=== PATIENT | male | born 1960 | race Two or more races ===

== ENCOUNTER → 2016-04-25 | Outpatient (CLI) | payer OTHER ==
[~2016-04-25] MED LIST: AMLO10TA2 PO; GABA-339 PO; RALT400T PO; RAMI10CA OR; [UNRECOGNIZED DRUG - CODE] PO
[2016-04-25 13:45] LABS: DEFINITIVE VIEW TRANSMISSION; Hematocrit 49.5 % (41.0-53.0); Hemoglobin 15.4 g/dL (13.5-17.5); Mean Corpuscular Hemoglobin 26.8 pg (28.0-32.0); Mean Corpuscular Hgb Conc. 31.2 g/dL (32.0-36.0); Mean Corpuscular Volume 86.1 fL (80.0-100.0); Mean Platelet Volume 9.2 fL (7.4-10.4); Platelet Count (auto) 265 10^3/uL (140-450); Red Cell Distribution Width 14.7 % (11.6-16.0); White Blood Cell 7.9 10^3/uL (4.4-10.8)
[2016-04-25 13:49] LABS: Metamyelocytes % 0; Myelocytes % 0; Promyelocytes % 0; Reactive Lymphocytes 0
[2016-04-25 15:20] LABS: Hypochromia Slight; Ovalocytes FEW; Platelet Estimate Adequate; Stomatocytes Few
== END | disposition home or self-care (01) ==
LOC: LAB 12:31
PROVIDERS: ATTEND Internal Medicine
DX: B20 Human immunodeficiency virus [HIV] disease (principal); I10 Essential (primary) hypertension
CPT/HCPCS: 36415; 85007; 85027; 85652; 86038; 86141; 86200; 86431

== ENCOUNTER 2016-06-25 00:12 | Emergency (ER) | payer OTHER ==
[~2016-06-25] VITALS: Ht 175.3 cm; Wt 99.3 kg
[2016-06-25 00:39] VITALS: BP 167/99
[2016-06-25 01:52] LABS: Hematocrit 42.8 % (41.0-53.0); Hemoglobin 13.8 g/dL (13.5-17.5); Mean Corpuscular Hemoglobin 27.7 pg (28.0-32.0); Mean Corpuscular Hgb Conc. 32.4 g/dL (32.0-36.0); Mean Corpuscular Volume 85.5 fL (80.0-100.0); Mean Platelet Volume 8.7 fL (7.4-10.4); Platelet Count (auto) 257 10^3/uL (140-450); Red Cell Distribution Width 15.4 % (11.6-16.0); White Blood Cell 6.2 10^3/uL (4.4-10.8)
[2016-06-25 01:53] LABS: Albumin 3.8 g/dL (3.4-5.0); Anion Gap 6 (5-15); Aspartate Aminotransferase 20 U/L (15-37); BUN/Creatinine Ratio 15.1; Blood Urea Nitrogen 16 mg/dL (7-18); Calcium 9.3 mg/dL (8.5-10.1); Carbon Dioxide 31 mmol/L (21-32); Chloride 106 mmol/L (98-107); GFR African American 93 mL/min; GFR Non-African American 77 mL/min; Glucose 106 mg/dL (74-106); Metamyelocytes % 0; Myelocytes % 0; Partial Thromboplastin Time 25.5 sec (22.64-33.71); Potassium 3.7 mmol/L (3.5-5.1); Promyelocytes % 0; Prothrombin Time 10.8 sec (9.37-12.3); Reactive Lymphocytes 0; Sodium 143 mmol/L (136-145)
[2016-06-25 01:56] LABS: Alkaline Phosphatase 93 U/L (45-117); Bilirubin, Total 0.3 mg/dL (0.2-1.0); Total Protein 7.5 g/dL (6.4-8.2)
[2016-06-25 02:10] LABS: B-Type Natriuretic Peptide 18.3 pg/mL (0-100); Temperature: 21.4 C (20.0-25.0)
[2016-06-25 03:36] LABS: Platelet Estimate Adequate; RBC Morphology Normal
== END 2016-06-25 03:52 | disposition left against medical advice (07) ==
LOC: ER 00:14
DX: R53.1 Weakness (principal); Z53.21 Procedure and treatment not carried out due to patient leaving prior to being seen by health care provider; R51 Headache
CPT/HCPCS: 36415; 70450; 71010; 80053; 83880; 84484; 85007; 85027; 85610; 85730; 93005

== ENCOUNTER 2016-06-25 16:13 | Emergency (ER) | payer OTHER ==
[~2016-06-25] VITALS: Ht 175.3 cm; Wt 99.3 kg
[2016-06-25] MEDS ORDERED: cloNIDine HCL 0.1 MG TAB PO ONE (17:45)
[2016-06-25 18:00] LABS: Hematocrit 41.8 % (41.0-53.0); Hemoglobin 13.5 g/dL (13.5-17.5); Mean Corpuscular Hemoglobin 27.7 pg (28.0-32.0); Mean Corpuscular Hgb Conc. 32.3 g/dL (32.0-36.0); Mean Corpuscular Volume 85.9 fL (80.0-100.0); Mean Platelet Volume 8.5 fL (7.4-10.4); Platelet Count (auto) 228 10^3/uL (140-450); Red Cell Distribution Width 15.7 % (11.6-16.0); White Blood Cell 5.7 10^3/uL (4.4-10.8)
[2016-06-25 18:13] LABS: Metamyelocytes % 0; Myelocytes % 0; Promyelocytes % 0; Reactive Lymphocytes 0
[2016-06-25 18:16] LABS: Calcium 9.3 mg/dL (8.5-10.1); Potassium 3.9 mmol/L (3.5-5.1)
[2016-06-25 18:28] VITALS: BP 152/96
[2016-06-25 18:52] LABS: Platelet Estimate Adequate
== END 2016-06-25 18:29 | disposition home or self-care (01) ==
LOC: ER 16:20
DX: I10 Essential (primary) hypertension (principal); G62.9 Polyneuropathy, unspecified; K21.9 Gastro-esophageal reflux disease without esophagitis; E78.5 Hyperlipidemia, unspecified; Z90.49 Acquired absence of other specified parts of digestive tract; F17.210 Nicotine dependence, cigarettes, uncomplicated
CPT/HCPCS: 36415; 80048; 85007; 85027; 94761

== ENCOUNTER → 2017-06-08 | Outpatient (CLI) | payer OTHER ==
[~2017-06-08] MED LIST changes: -RAMI10CA OR; +RAMI10CA18 OR
[2017-06-08 10:29] LABS: Hematocrit 41.9 % (41.0-53.0); Hemoglobin 13.6 g/dL (13.5-17.5); Mean Corpuscular Hemoglobin 27.8 pg (28.0-32.0); Mean Corpuscular Hgb Conc. 32.6 g/dL (32.0-36.0); Mean Corpuscular Volume 85.3 fL (80.0-100.0); Platelet Count (auto) 242 10^3/uL (140-450); Red Blood Cells 4.91 10^6/uL (4.5-5.90); White Blood Cell 4.3 10^3/uL (4.4-10.8)
[2017-06-08 10:34] LABS: Band Neutrophils % (manual) 0; Basophils % (manual) 0 (0.0-2.0); Blast Cells 0; Metamyelocytes % 0; Myelocytes % 0; Promyelocytes % 0; Reactive Lymphocytes 0
[2017-06-08 10:49] LABS: Eosinophils % (manual) 2 (0-7); Lymphocytes % (manual) 60 (10.0-50.0); Monocytes % (manual) 13 (0-12)
[2017-06-08 10:52] LABS: BUN/Creatinine Ratio 13.8; Bilirubin, Total 0.4 mg/dL (0.2-1.0); Calcium 8.9 mg/dL (8.5-10.1); Total Protein 7.8 g/dL (6.4-8.2)
== END | disposition home or self-care (01) ==
LOC: LAB 09:24
DX: B20 Human immunodeficiency virus [HIV] disease (principal); B18.2 Chronic viral hepatitis C; G89.4 Chronic pain syndrome; Z68.32 Body mass index [BMI] 32.0-32.9, adult
CPT/HCPCS: 36415; 80053; 85007; 85027; 86360

== ENCOUNTER → 2017-08-02 | Outpatient (CLI) | payer OTHER ==
[2017-08-02 11:39] LABS: Hematocrit 41.2 % (41.0-53.0); Hemoglobin 13.6 g/dL (13.5-17.5); Mean Corpuscular Hgb Conc. 32.9 g/dL (32.0-36.0); Mean Corpuscular Volume 85.1 fL (80.0-100.0); Platelet Count (auto) 202 10^3/uL (140-450); Red Blood Cells 4.84 10^6/uL (4.5-5.90); Red Cell Distribution Width 15.5 % (11.8-14.3); White Blood Cell 4.8 10^3/uL (4.4-10.8)
[2017-08-02 12:02] LABS: Albumin 3.9 g/dL (3.4-5.0); Bilirubin, Total 0.3 mg/dL (0.2-1.0); Calcium 9.4 mg/dL (8.5-10.1); Potassium 4.2 mmol/L (3.5-5.1); Total Protein 7.5 g/dL (6.4-8.2)
[2017-08-02 12:11] LABS: Band Neutrophils % (manual) 0; Basophils % (manual) 0 (0.0-2.0); Blast Cells 0; Metamyelocytes % 0; Myelocytes % 0; Promyelocytes % 0
[2017-08-02 14:18] LABS: Eosinophils % (manual) 2 (0-7); Lymphocytes % (manual) 46 (10.0-50.0); Monocytes % (manual) 6 (0-12); Reactive Lymphocytes 12
== END | disposition home or self-care (01) ==
LOC: LAB 11:18
PROVIDERS: ATTEND Physician Assistant
DX: Z12.5 Encounter for screening for malignant neoplasm of prostate (principal); E78.2 Mixed hyperlipidemia; B20 Human immunodeficiency virus [HIV] disease; B19.20 Unspecified viral hepatitis C without hepatic coma; E31.9 Polyglandular dysfunction, unspecified
CPT/HCPCS: 36415; 80053; 80061; 84153; 84403; 85007; 85027; 87522

== ENCOUNTER 2017-12-16 05:00 | Emergency (ER) | payer OTHER ==
[~2017-12-16] VITALS: Ht 175.3 cm; Wt 94.8 kg
[~2017-12-16 05:00] MED LIST changes: +AMLO10TA12 PO; -AMLO10TA2 PO
[2017-12-16] MEDS ORDERED: SODIUM CHLORIDE 0.9% 1,000 ML IV ONE (07:18)
[2017-12-16] MEDS ORDERED: KETOROLAC TROMETH 30 MG/ML 1ML VIAL IV ONE (07:30)
[2017-12-16] MEDS ORDERED: METOCLOPRAMIDE HCL 5MG/ml INJ 2ml VIAL IV ONE (07:30)
[2017-12-16 09:01] VITALS: BP 142/82
== END 2017-12-16 09:04 | disposition home or self-care (01) ==
LOC: ER 05:00
DX: S22.42XA Multiple fractures of ribs, left side, initial encounter for closed fracture (principal); I10 Essential (primary) hypertension; E78.5 Hyperlipidemia, unspecified; K21.9 Gastro-esophageal reflux disease without esophagitis; Z90.89 Acquired absence of other organs; W51.XXXA Accidental striking against or bumped into by another person, initial encounter; Y93.71 Activity, boxing; Y99.8 Other external cause status; Y92.89 Other specified places as the place of occurrence of the external cause
CPT/HCPCS: 71250; 93005; 96374; 96375; 99284; J1885; J2765; J7030; 96361

== ENCOUNTER → 2018-09-26 | Outpatient (CLI) | payer OTHER | END | disposition home or self-care (01) | LOC: LAB 12:18 | PROVIDERS: ATTEND Obstetrics & Gynecology | DX: B20 Human immunodeficiency virus [HIV] disease (principal) | CPT/HCPCS: 87536 ==

== ENCOUNTER 2019-08-30 06:49 | Emergency (ER) | payer OTHER ==
[~2019-08-30] VITALS: Ht 177.8 cm; Wt 93.9 kg
[~2019-08-30 06:49] MED LIST changes: -AMLO10TA12 PO; +AMLO10TA13 PO; -RAMI10CA18 OR; +RAMI10CA28 OR
[2019-08-30] MEDS ORDERED: SODIUM CHLORIDE 0.9% 1,000 ML IV ONE ×2 (06:56)
[2019-08-30] MEDS ORDERED: MORPHINE SULFATE 4 MG/ML SYR/VIAL IV ONE (07:00)
[2019-08-30] MEDS ORDERED: PROCHLORPERAZINE EDISYLATE 5 MG/ML 2ML VIAL IV ONE (07:00)
[2019-08-30] MEDS ORDERED: LABETALOL HCL 5 MG/ML 4ML SYRINGE IV ONE (07:15)
[2019-08-30 08:53] LABS: Basophils # (auto) 0 10 ^3/uL (0-0.2); Basophils % (auto) 0.8 % (0.0-2.0); Eosinophils # (auto) 0 10 ^3/uL (0-0.8); Eosinophils % (auto) 0.2 % (0.0-7.0); Hematocrit 42.8 % (41.0-53.0); Lymphocytes # (auto) 1.3 10 ^3/uL (0.4-5.4); Lymphocytes % (auto) 25.8 % (10.0-50.0); Mean Corpuscular Hemoglobin 27.5 pg (28.0-32.0); Mean Corpuscular Hgb Conc. 32.6 g/dL (32.0-36.0); Mean Corpuscular Volume 84.4 fL (80.0-100.0); Monocytes # (auto) 0.4 10 ^3/uL (0-1.3); Monocytes % (auto) 7.9 % (0.0-12.0); Neutrophils # (auto) 3.3 10 ^3/uL (1.6-8.6); Neutrophils % (auto) 65.3 % (37.0-80.0); Nucleated Red Blood Cells % 0.2 %; Platelet Count (auto) 182 10^3/uL (140-450); Red Blood Cells 5.08 10^6/uL (4.5-5.90); Red Cell Distribution Width 14.1 % (11.8-14.3)
[2019-08-30 09:01] LABS: Alanine Aminotransferase 55 U/L (16-61); Albumin 3.9 g/dL (3.4-5.0); Anion Gap 10 (5-15); Aspartate Aminotransferase 186 U/L (15-37); BUN/Creatinine Ratio 9.8; Blood Urea Nitrogen 9 mg/dL (7-18); Calcium 8.7 mg/dL (8.5-10.1); Carbon Dioxide 23 mmol/L (21-32); Chloride 110 mmol/L (98-107); GFR African American 108 mL/min; GFR Non-African American 89 mL/min; Glucose 109 mg/dL (74-106); Potassium 3.3 mmol/L (3.5-5.1); Sodium 143 mmol/L (136-145)
[2019-08-30 09:04] LABS: Amylase 42 U/L (25-115); Lipase 77 U/L (73-393)
[2019-08-30 09:05] LABS: Alkaline Phosphatase 87 U/L (45-117); Bilirubin, Total 0.5 mg/dL (0.2-1.0); Total Protein 7.8 g/dL (6.4-8.2)
[2019-08-30 09:21] VITALS: BP 181/65
[2019-08-30 09:52] LABS: Urine Bacteria NONE SEEN /hpf (None Seen); Urine Blood Negative /uL (Negative); Urine Hyaline Cast FEW /lpf (0 - 2); Urine Mucus FEW (None Seen); Urine WBC 1 /hpf (0 - 3)
[2019-08-30 10:03] LABS: Amphetamine Screen, Urine NEGATIVE (NEGATIVE); Barbiturate Scree,Urine NEGATIVE (NEGATIVE); Benzodiazephine Screen, Urine NEGATIVE (NEGATIVE); Cannabinoid Screen, Urine POSITIVE (NEGATIVE); Cocaine Screen, Urine NEGATIVE (NEGATIVE); Phencyclidine Screen, Urine NEGATIVE (NEGATIVE)
[2019-08-30 10:16] LABS: Opiate Scree,Urine POSITIVE (NEGATIVE)
[2019-08-30 10:18] LABS: Alcohol, Urine < 3.0 mg/dL (0-10)
== END 2019-08-30 10:39 | disposition left against medical advice (07) ==
LOC: EDBD 06:49 → ER 06:49
DX: R07.89 Other chest pain (principal); R11.2 Nausea with vomiting, unspecified; E86.0 Dehydration; R00.1 Bradycardia, unspecified; K21.9 Gastro-esophageal reflux disease without esophagitis; E78.5 Hyperlipidemia, unspecified; I10 Essential (primary) hypertension; Z79.899 Other long term (current) drug therapy
CPT/HCPCS: 36415; 71045; 74176; 80053; 80307; 81001; 82150; 83690; 84484; 85025; 93005; 96361; 96374; 96375; 99285; J0780; J2270; J7030

== ENCOUNTER → 2019-10-09 | Outpatient (CLI) | payer OTHER ==
[2019-10-09 11:35] LABS: Alcohol, Urine < 3.0 mg/dL (0-10); Amphetamine Screen, Urine NEGATIVE (NEGATIVE); Barbiturate Scree,Urine NEGATIVE (NEGATIVE); Benzodiazephine Screen, Urine NEGATIVE (NEGATIVE); Cocaine Screen, Urine NEGATIVE (NEGATIVE); Opiate Scree,Urine NEGATIVE (NEGATIVE)
[2019-10-09 11:42] LABS: Cannabinoid Screen, Urine POSITIVE (NEGATIVE); Phencyclidine Screen, Urine NEGATIVE (NEGATIVE)
== END | disposition home or self-care (01) ==
LOC: LAB 10:31
PROVIDERS: ATTEND Physician Assistant
DX: Z79.891 Long term (current) use of opiate analgesic (principal)
CPT/HCPCS: 80307

== ENCOUNTER 2019-12-30 11:13 | Emergency (ER) | payer OTHER ==
[~2019-12-30] VITALS: Ht 175.3 cm; Wt 88.5 kg
[2019-12-30 12:13] LABS: Urine WBC None Seen /hpf (0 - 3)
[2019-12-30 12:27] LABS: Urine Bacteria NONE SEEN /hpf (None Seen); Urine Blood Negative /uL (Negative); Urine Specific Gravity 1.004 (1.001-1.035)
[2019-12-30 13:31] LABS: Basophils # (auto) 0.1 10 ^3/uL (0-0.2); Basophils % (auto) 0.8 % (0.0-2.0); Eosinophils # (auto) 0.1 10 ^3/uL (0-0.8); Hematocrit 48.6 % (41.0-53.0); Hemoglobin 15.8 g/dL (13.5-17.5); Lymphocytes # (auto) 3.5 10 ^3/uL (0.4-5.4); Lymphocytes % (auto) 53.4 % (10.0-50.0); Mean Corpuscular Hemoglobin 27.6 pg (28.0-32.0); Mean Corpuscular Hgb Conc. 32.5 g/dL (32.0-36.0); Mean Corpuscular Volume 84.8 fL (80.0-100.0); Monocytes # (auto) 0.5 10 ^3/uL (0-1.3); Monocytes % (auto) 8.1 % (0.0-12.0); Neutrophils # (auto) 2.3 10 ^3/uL (1.6-8.6); Neutrophils % (auto) 35.7 % (37.0-80.0); Nucleated Red Blood Cells % 0.2 %; Platelet Count (auto) 190 10^3/uL (140-450); Red Blood Cells 5.73 10^6/uL (4.5-5.90); Red Cell Distribution Width 15.6 % (11.8-14.3); White Blood Cell 6.5 10^3/uL (4.4-10.8)
[2019-12-30 13:46] LABS: INR 0.98 (0.9-1.15); Partial Thromboplastin Time 25.1 sec (23.0-31.2)
[2019-12-30 13:53] LABS: Albumin 4.3 g/dL (3.4-5.0); Calcium 9.3 mg/dL (8.5-10.1); Potassium 4.2 mmol/L (3.5-5.1)
[2019-12-30 14:05] LABS: BUN/Creatinine Ratio 14.4; Bilirubin, Total 0.3 mg/dL (0.2-1.0); Total Protein 8.2 g/dL (6.4-8.2)
[2019-12-30 16:36] VITALS: BP 128/64
== END 2019-12-30 16:38 | disposition home or self-care (01) ==
LOC: ER 11:13
DX: K80.20 Calculus of gallbladder without cholecystitis without obstruction (principal); K21.9 Gastro-esophageal reflux disease without esophagitis; E78.5 Hyperlipidemia, unspecified; I10 Essential (primary) hypertension; Z88.8 Allergy status to other drugs, medicaments and biological substances
CPT/HCPCS: 36415; 76705; 80053; 81001; 82150; 83690; 85025; 85610; 85730

== ENCOUNTER → 2020-01-21 | Outpatient (CLI) | payer OTHER ==
[2020-01-21 10:58] LABS: Hematocrit 43.7 % (41.0-53.0); Hemoglobin 14.7 g/dL (13.5-17.5); Mean Corpuscular Hemoglobin 28.5 pg (28.0-32.0); Mean Corpuscular Hgb Conc. 33.6 g/dL (32.0-36.0); Mean Corpuscular Volume 84.7 fL (80.0-100.0); Platelet Count (auto) 187 10^3/uL (140-450); Red Blood Cells 5.16 10^6/uL (4.5-5.90); Red Cell Distribution Width 15.1 % (11.8-14.3); White Blood Cell 5.7 10^3/uL (4.4-10.8)
[2020-01-21 11:01] LABS: Band Neutrophils % (manual) 0; Basophils % (manual) 0 (0.0-2.0); Blast Cells 0; Metamyelocytes % 0; Myelocytes % 0; Promyelocytes % 0; Reactive Lymphocytes 0
[2020-01-21 11:24] LABS: Eosinophils % (manual) 3 (0-7); Lymphocytes % (manual) 70 (10.0-50.0); Monocytes % (manual) 2 (0-12)
[2020-01-21 11:29] LABS: Albumin 3.9 g/dL (3.4-5.0); Calcium 9.7 mg/dL (8.5-10.1); Potassium 3.9 mmol/L (3.5-5.1)
[2020-01-21 11:35] LABS: BUN/Creatinine Ratio 17.6; Bilirubin, Total 0.3 mg/dL (0.2-1.0); Total Protein 7.6 g/dL (6.4-8.2)
== END | disposition home or self-care (01) ==
LOC: LAB 10:36
PROVIDERS: ATTEND Physician Assistant
DX: E78.2 Mixed hyperlipidemia (principal); I10 Essential (primary) hypertension; E34.9 Endocrine disorder, unspecified; R35.1 Nocturia; B20 Human immunodeficiency virus [HIV] disease
CPT/HCPCS: 36415; 80053; 80061; 84153; 84403; 85007; 85027

== ENCOUNTER 2021-02-28 18:07 | Emergency (ER) | payer OTHER ==
[~2021-02-28] VITALS: Ht 175.3 cm; Wt 88.0 kg
[~2021-02-28 18:07] MED LIST changes: +AMLO-496 PO; -AMLO10TA13 PO
[2021-02-28 18:10] VITALS: BP 139/100
== END 2021-02-28 23:32 | disposition left against medical advice (07) ==
LOC: ER 18:07
DX: S61.412A Laceration without foreign body of left hand, initial encounter (principal); Z53.21 Procedure and treatment not carried out due to patient leaving prior to being seen by health care provider; W26.9XXA Contact with unspecified sharp object(s), initial encounter; Y93.89 Activity, other specified; Y92.89 Other specified places as the place of occurrence of the external cause; Y99.8 Other external cause status

== ENCOUNTER → 2021-04-06 | Outpatient (CLI) | payer OTHER | END | disposition home or self-care (01) | LOC: LAB 12:00 | PROVIDERS: ATTEND Specialist | DX: D31.02 Benign neoplasm of left conjunctiva (principal) | CPT/HCPCS: 88302 ==

== ENCOUNTER 2022-01-25 11:19 | Inpatient (IN) | payer OTHER ==
[~2022-01-25] VITALS: Ht 175.3 cm; Wt 98.8 kg
[2022-01-25 11:36] VITALS: BP 189/100
[2022-01-25 11:57] LABS: Hematocrit 42.8 % (41.0-53.0); Hemoglobin 13.9 g/dL (13.5-17.5); Mean Corpuscular Hemoglobin 28.6 pg (28.0-32.0); Mean Corpuscular Hgb Conc. 32.5 g/dL (32.0-36.0); Mean Corpuscular Volume 88.1 fL (80.0-100.0); Red Blood Cells 4.86 10^6/uL (4.5-5.90); Red Cell Distribution Width 14.6 % (11.8-14.3); White Blood Cell 5.7 10^3/uL (4.4-10.8)
[2022-01-25 12:01] LABS: Band Neutrophils % (manual) 0; Basophils % (manual) 0 (0.0-2.0); Blast Cells 0; Eosinophils % (manual) 0 (0-7); Metamyelocytes % 0; Myelocytes % 0; Promyelocytes % 0
[2022-01-25 12:27] LABS: Lymphocytes % (manual) 66 (10.0-50.0); Monocytes % (manual) 7 (0-12); Reactive Lymphocytes 5
[2022-01-25 12:29] LABS: Albumin 3.9 g/dL (3.4-5.0); BUN/Creatinine Ratio 18.3; Bilirubin, Total 0.5 mg/dL (0.2-1.0); Calcium 8.8 mg/dL (8.5-10.1)
[2022-01-25 14:04] LABS: Urine Bacteria NONE SEEN /hpf (None Seen); Urine Blood Negative /uL (Negative); Urine Hyaline Cast FEW /lpf (0 - 2); Urine Mucus FEW (None Seen); Urine WBC 1 /hpf (0 - 3)
[2022-01-25] MEDS ORDERED: amLODIPine BESYLATE 5 MG TAB PO ONE (14:45)
[2022-01-25] MEDS ORDERED: ASPirin 81 mg TAB PO ONE (15:00)
[2022-01-25] MEDS ORDERED: HYDROcodone-ACET 5/325MG TAB PO PRN (16:00)
[2022-01-25] MEDS ORDERED: MORPHINE SULFATE INJ 2 MG/ml SYRG IV PRN ×2 (16:00)
[2022-01-25] MEDS ORDERED: NITROGLYCERIN 0.4 MG SL TAB SL PRN (16:00)
[2022-01-25] MEDS ORDERED: ACETAMINOPHEN 325 MG TAB PO PRN (16:00)
[2022-01-25] MEDS ORDERED: hydrALAZINE HCL 20 MG/ML VL IV PRN (16:45)
[2022-01-25 17:01] LABS: Cholesterol 156 mg/dL (< 200); HDL Cholesterol 82 mg/dL (40-59); LDL Cholesterol 75 mg/dL (< 100); Triglycerides 104 mg/dL (< 150)
[2022-01-25 19:08] LABS: Amphetamine Screen, Urine NEGATIVE (NEGATIVE); Barbiturate Scree,Urine NEGATIVE (NEGATIVE); Benzodiazephine Screen, Urine NEGATIVE (NEGATIVE); Cannabinoid Screen, Urine POSITIVE (NEGATIVE); Cocaine Screen, Urine NEGATIVE (NEGATIVE); Opiate Scree,Urine NEGATIVE (NEGATIVE); Phencyclidine Screen, Urine NEGATIVE (NEGATIVE)
[2022-01-25] MEDS ORDERED: ATORVASTATIN 20 MG TAB PO SCH (22:00)
[2022-01-25] MEDS ORDERED: ENOXAPARIN SOD 100 MG/1 ML SYRINGE SC SCH (22:00)
[2022-01-25] MEDS ORDERED: GABAPENTIN 300 MG CAP PO SCH (22:00)
[2022-01-26] MEDS ORDERED: ASPirin 81 mg TAB PO SCH (10:00)
[2022-01-26] MEDS ORDERED: NICOTINE 7MG/24HR TOPICAL PATCH TD SCH (10:00)
[2022-01-26] MEDS ORDERED: NITROGLYCERIN 0.4MG/HR TOPICAL PATCH TD SCH (10:00)
[2022-01-26] MEDS ORDERED: amLODIPine BESYLATE 5 MG TAB PO SCH (10:00)
[2022-01-26] MEDS ORDERED: RAMIPRIL 10 MG CAP PO SCH (10:00)
[2022-01-26] MEDS ORDERED: [UNRECOGNIZED DRUG - OTHER] PO SCH (10:00)
== END 2022-01-25 19:17 | disposition left against medical advice (07) | DRG 305 ==
LOC: ER 11:19 → TELE 15:58
PROVIDERS: ADMIT Registered Nurse; ATTEND Registered Nurse
DX: I16.0 Hypertensive urgency (principal); E66.01 Morbid (severe) obesity due to excess calories; E78.5 Hyperlipidemia, unspecified; F17.210 Nicotine dependence, cigarettes, uncomplicated; I10 Essential (primary) hypertension; I44.0 Atrioventricular block, first degree; K21.9 Gastro-esophageal reflux disease without esophagitis; Z82.49 Family history of ischemic heart disease and other diseases of the circulatory system; Z90.49 Acquired absence of other specified parts of digestive tract; Z68.32 Body mass index [BMI] 32.0-32.9, adult
CPT/HCPCS: 36415; 71045; 80053; 80061; 80307; 81001; 83036; 84443; 84484; 85007; 85027; 93005; G0378

== ENCOUNTER 2022-01-27 06:00 | Inpatient (IN) | payer OTHER ==
[~2022-01-27] VITALS: Ht 175.3 cm; Wt 89.0 kg
[2022-01-27] MEDS ORDERED: cloNIDine HCL 0.1 MG TAB PO ONE ×2 (06:30→18:00)
[2022-01-27 06:37] LABS: Basophils # (auto) 0 10 ^3/uL (0-0.2); Basophils % (auto) 0.5 % (0.0-2.0); Eosinophils # (auto) 0 10 ^3/uL (0-0.8); Eosinophils % (auto) 0.8 % (0.0-7.0); Hematocrit 45.6 % (41.0-53.0); Hemoglobin 14.8 g/dL (13.5-17.5); Lymphocytes # (auto) 2.8 10 ^3/uL (0.4-5.4); Lymphocytes % (auto) 49.3 % (10.0-50.0); Mean Corpuscular Hemoglobin 28.4 pg (28.0-32.0); Mean Corpuscular Hgb Conc. 32.4 g/dL (32.0-36.0); Mean Corpuscular Volume 87.5 fL (80.0-100.0); Monocytes # (auto) 0.6 10 ^3/uL (0-1.3); Monocytes % (auto) 11.3 % (0.0-12.0); Neutrophils # (auto) 2.1 10 ^3/uL (1.6-8.6); Neutrophils % (auto) 38.1 % (37.0-80.0); Nucleated Red Blood Cells % 0.4 %; Red Cell Distribution Width 14.4 % (11.8-14.3); White Blood Cell 5.6 10^3/uL (4.4-10.8)
[2022-01-27] MEDS ORDERED: ASPirin 325 MG TAB PO ONE (06:45)
[2022-01-27] MEDS ORDERED: NITROGLYCERIN 0.4 MG SL TAB SL ONE (06:45)
[2022-01-27 07:14] LABS: Albumin 3.9 g/dL (3.4-5.0); Calcium 9.2 mg/dL (8.5-10.1); Potassium 3.6 mmol/L (3.5-5.1)
[2022-01-27 07:17] LABS: Bilirubin, Total 0.5 mg/dL (0.2-1.0); Total Protein 7.2 g/dL (6.4-8.2)
[2022-01-27 07:39] LABS: INR 1.04 (0.9-1.15); Partial Thromboplastin Time 27.1 sec (24.6-33.4)
[2022-01-27] MEDS ORDERED: ALUM & MAG HYDROX-SIMETH LIQ(MAALOX) 30 ML PO ONE (10:45)
[2022-01-27] MEDS ORDERED: MORPHINE SULFATE 4 MG/ML SYR/VIAL IV PRN (10:45)
[2022-01-27] MEDS ORDERED: NITROGLYCERIN 0.4 MG SL TAB SL PRN ×2 (10:45)
[2022-01-27] MEDS ORDERED: ATORVASTATIN 20 MG TAB PO ONE (10:45)
[2022-01-27] MEDS ORDERED: ENOXAPARIN SOD 30 MG/0.3 ML SYRINGE IV ONE (10:45)
[2022-01-27 11:32] LABS: INR 1.04 (0.9-1.15)
[2022-01-27] MEDS ORDERED: RAMIPRIL 10 MG CAP PO ONE (12:00)
[2022-01-27] MEDS: GABAPENTIN 300 MG CAP PO SCH ×2 (12:06→21:37)
[2022-01-27] MEDS ORDERED: amLODIPine BESYLATE 5 MG TAB PO ONE (12:15)
[2022-01-27] MEDS: ONDANSETRON HCL 4 MG/2 ML VIAL IV PRN ×2 (15:23→21:44)
[2022-01-27] MEDS: MORPHINE SULFATE INJ 2 MG/ml SYRG IV PRN ×2 (15:23→19:25)
[2022-01-27] MEDS: hydrALAZINE HCL 20 MG/ML VL IV PRN ×2 (15:23→23:05)
[2022-01-27 17:00] VITALS: BP 177/101
[2022-01-27] MEDS ORDERED: CLON0.2T PO (17:53)
[2022-01-27 18:52] VITALS: BP 162/87
[2022-01-27] MEDS: cloNIDine HCL 0.1 MG TAB PO SCH (21:38)
[2022-01-27] MEDS: ACETAMINOPHEN 325 MG TAB PO PRN (23:04)
[2022-01-27 23:53] VITALS: BP 151/77
[2022-01-28] VITALS (9 sets, daily range): BP systolic 123–158; BP diastolic 63–98
[2022-01-28] MEDS: ONDANSETRON HCL 4 MG/2 ML VIAL IV PRN (01:52)
[2022-01-28] MEDS: MORPHINE SULFATE INJ 2 MG/ml SYRG IV PRN (01:53)
[2022-01-28] MEDS ORDERED: PANTOPRAZOLE 40 MG/10 ML VIAL INJ IV ONE (02:45)
[2022-01-28 05:31] LABS: Basophils # (auto) 0 10 ^3/uL (0-0.2); Basophils % (auto) 0.3 % (0.0-2.0); Eosinophils # (auto) 0 10 ^3/uL (0-0.8); Eosinophils % (auto) 0.1 % (0.0-7.0); Hematocrit 44.6 % (41.0-53.0); Hemoglobin 14.9 g/dL (13.5-17.5); Lymphocytes # (auto) 0.5 10 ^3/uL (0.4-5.4); Lymphocytes % (auto) 11.6 % (10.0-50.0); Mean Corpuscular Hgb Conc. 33.3 g/dL (32.0-36.0); Mean Corpuscular Volume 87.2 fL (80.0-100.0); Monocytes # (auto) 0.5 10 ^3/uL (0-1.3); Monocytes % (auto) 10.5 % (0.0-12.0); Neutrophils # (auto) 3.5 10 ^3/uL (1.6-8.6); Neutrophils % (auto) 77.5 % (37.0-80.0); Nucleated Red Blood Cells % 0.2 %; Red Blood Cells 5.11 10^6/uL (4.5-5.90); Red Cell Distribution Width 14.4 % (11.8-14.3); White Blood Cell 4.6 10^3/uL (4.4-10.8)
[2022-01-28 08:53] LABS: Albumin 3.6 g/dL (3.4-5.0); Calcium 8.9 mg/dL (8.5-10.1); Potassium 4.1 mmol/L (3.5-5.1)
[2022-01-28 08:56] LABS: Bilirubin, Total 0.4 mg/dL (0.2-1.0); Total Protein 6.8 g/dL (6.4-8.2)
[2022-01-28] MEDS: GABAPENTIN 300 MG CAP PO SCH ×2 (09:42→22:12)
[2022-01-28] MEDS: PANTOPRAZOLE 40 MG/10 ML VIAL INJ IV SCH (09:43)
[2022-01-28] MEDS: ASPirin 81 mg TAB PO SCH (09:44)
[2022-01-28] MEDS: amLODIPine BESYLATE 5 MG TAB PO SCH (09:44)
[2022-01-28] MEDS: DOCUSATE SOD 100 MG CAP PO SCH (09:45)
[2022-01-28] MEDS: cloNIDine HCL 0.1 MG TAB PO SCH ×2 (09:45→22:12)
[2022-01-28] MEDS: CLOPIDOGREL BISULFATE 75 MG TAB PO SCH (09:45)
[2022-01-28] MEDS: RAMIPRIL 10 MG CAP PO SCH (09:46)
[2022-01-28] MEDS: [UNRECOGNIZED DRUG - OTHER] PO SCH (10:00)
[2022-01-28] MEDS ORDERED: HEPARIN SODIUM (PORCINE) 5000 UNITS/ML 1ML VIAL ONE (16:24)
[2022-01-28] MEDS ORDERED: VERAPAMIL 2.5MG/ML INJ 2ML VIAL IV ONE (16:24)
[2022-01-28] MEDS ORDERED: fentaNYL CITRATE 100 MCG/2 ML VL ONE (16:24)
[2022-01-28] MEDS ORDERED: MIDAZOLAM HCL 2MG/2ML 2ml VIAL (1mg/ml) ONE (16:25)
[2022-01-28] MEDS ORDERED: LIDOCAINE 2%HCL (LOCAL ANESTH.) INJ 20ML MDV ONE (16:25)
[2022-01-28] MEDS ORDERED: IODIXANOL 320MG/ML 100ML BTL IV ONE ×2 (16:25→16:57)
[2022-01-28] MEDS ORDERED: ANGIOMAX 250 MG VIAL IV ONE (16:47)
[2022-01-28] MEDS ORDERED: SODIUM CHL 0.9% 50 ML ONE (16:47)
[2022-01-28] MEDS ORDERED: CLOPIDOGREL 300 MG TAB ONE (17:02)
[2022-01-29 05:00] VITALS: BP 147/89
[2022-01-29 09:00] VITALS: BP 155/78
[2022-01-29] MEDS: CLOPIDOGREL BISULFATE 75 MG TAB PO SCH (09:11)
[2022-01-29] MEDS: GABAPENTIN 300 MG CAP PO SCH (09:12)
[2022-01-29] MEDS: cloNIDine HCL 0.1 MG TAB PO SCH (09:13)
[2022-01-29] MEDS: amLODIPine BESYLATE 5 MG TAB PO SCH (09:14)
[2022-01-29] MEDS: ASPirin 81 mg TAB PO SCH (09:14)
[2022-01-29] MEDS: ACETAMINOPHEN 325 MG TAB PO PRN (09:14)
[2022-01-29] MEDS: DOCUSATE SOD 100 MG CAP PO SCH (09:15)
[2022-01-29] MEDS: PANTOPRAZOLE 40 MG/10 ML VIAL INJ IV SCH (09:16)
[2022-01-29] MEDS: [UNRECOGNIZED DRUG - OTHER] PO SCH (10:00)
[2022-01-29] MEDS: RAMIPRIL 10 MG CAP PO SCH (10:00)
[2022-01-29 13:00] VITALS: BP 142/80
[2022-01-29] MEDS ORDERED: ATOR20TA50 PO (16:26)
[2022-01-29] MEDS ORDERED: CLOP75TA70 PO (16:26)
[2022-01-29] MEDS ORDERED: METO-6 PO (16:26)
[2022-01-29] MEDS ORDERED: ASPI-325 PO (16:26)
[2022-01-29 17:00] VITALS: BP 160/96
[2022-01-29 17:11] VITALS: BP 155/78
[2022-01-29] MEDS ORDERED: ATORVASTATIN 20 MG TAB PO SCH (22:00)
[2022-01-30] MEDS ORDERED: METOPROLOL SUCCINATE XL 50 MG TAB PO SCH (10:00)
== END 2022-01-29 17:40 | disposition home or self-care (01) | DRG 247 ==
LOC: ER 06:00 → TELE 10:42 → TELE-EAST 17:05
PROVIDERS: ADMIT Nurse Practitioner Family; ATTEND Student in an Organized Health Care Education/Training Program
PROC: 4A023N7 Measurement of Cardiac Sampling and Pressure, Left Heart, Percutaneous Approach (ICD-10-PCS; principal; 2022-01-28)
PROC: 027034Z Dilation of Coronary Artery, One Artery with Drug-eluting Intraluminal Device, Percutaneous Approach (ICD-10-PCS; 2022-01-28)
PROC: B211YZZ Fluoroscopy of Multiple Coronary Arteries using Other Contrast (ICD-10-PCS; 2022-01-28)
PROC: B215YZZ Fluoroscopy of Left Heart using Other Contrast (ICD-10-PCS; 2022-01-28)
PROC: 4A033BC Measurement of Arterial Pressure, Coronary, Percutaneous Approach (ICD-10-PCS; 2022-01-28)
DX: I21.4 Non-ST elevation (NSTEMI) myocardial infarction (principal); I16.1 Hypertensive emergency; I25.110 Atherosclerotic heart disease of native coronary artery with unstable angina pectoris; I24.9 Acute ischemic heart disease, unspecified; F17.210 Nicotine dependence, cigarettes, uncomplicated; I10 Essential (primary) hypertension; Z21 Asymptomatic human immunodeficiency virus [HIV] infection status; Z20.822 Contact with and (suspected) exposure to COVID-19; K21.9 Gastro-esophageal reflux disease without esophagitis; E78.5 Hyperlipidemia, unspecified; Z82.49 Family history of ischemic heart disease and other diseases of the circulatory system; Z79.899 Other long term (current) drug therapy; Z90.49 Acquired absence of other specified parts of digestive tract
CPT/HCPCS: 36415; 71045; 80053; 80061; 83735; 83880; 84484; 85025; 85610; 85730; 87426; 93005; 93306; 96374; 99152; C1874; C9113; G0378; J2250; J2405; Q9967

== ENCOUNTER 2022-04-09 06:13 | Inpatient (IN) | payer OTHER ==
[~2022-04-09] VITALS: Ht 175.3 cm; Wt 93.4 kg
[~2022-04-09 06:13] MED LIST changes: +ASPI-325 PO; +ATOR20TA50 PO; +CLON0.2T PO; +CLOP75TA70 PO; +METO-6 PO
[2022-04-09 06:41] VITALS: BP 189/107
[2022-04-09 07:13] LABS: Basophils # (auto) 0 10 ^3/uL (0-0.2); Basophils % (auto) 0.4 % (0.0-2.0); Eosinophils # (auto) 0.1 10 ^3/uL (0-0.8); Eosinophils % (auto) 1.1 % (0.0-7.0); Hematocrit 44.4 % (41.0-53.0); Hemoglobin 14.5 g/dL (13.5-17.5); Lymphocytes # (auto) 2.3 10 ^3/uL (0.4-5.4); Lymphocytes % (auto) 47.8 % (10.0-50.0); Mean Corpuscular Hemoglobin 29.1 pg (28.0-32.0); Mean Corpuscular Hgb Conc. 32.6 g/dL (32.0-36.0); Mean Corpuscular Volume 89.2 fL (80.0-100.0); Monocytes # (auto) 0.5 10 ^3/uL (0-1.3); Monocytes % (auto) 11.2 % (0.0-12.0); Neutrophils # (auto) 1.9 10 ^3/uL (1.6-8.6); Neutrophils % (auto) 39.5 % (37.0-80.0); Nucleated Red Blood Cells % 0.3 %; Red Blood Cells 4.97 10^6/uL (4.5-5.90); Red Cell Distribution Width 17.1 % (11.8-14.3); White Blood Cell 4.8 10^3/uL (4.4-10.8)
[2022-04-09 07:26] LABS: Albumin 4.1 g/dL (3.4-5.0); Calcium 9.2 mg/dL (8.5-10.1)
[2022-04-09 07:30] LABS: BUN/Creatinine Ratio 13.4; Bilirubin, Total 0.5 mg/dL (0.2-1.0); Total Protein 7.4 g/dL (6.4-8.2)
[2022-04-09] MEDS ORDERED: cloNIDine HCL 0.1 MG TAB PO ONE (08:00)
[2022-04-09 09:43] LABS: INR 0.96 (0.9-1.15); Partial Thromboplastin Time 26.8 sec (24.6-33.4)
[2022-04-09] MEDS ORDERED: NITROGLYCERIN 0.4 MG SL TAB SL PRN (09:45)
[2022-04-09] MEDS ORDERED: HYDROcodone-ACET 5/325MG TAB PO PRN (09:45)
[2022-04-09] MEDS ORDERED: DOCUSATE SOD 100 MG CAP PO PRN (09:45)
[2022-04-09] MEDS ORDERED: SODIUM CHLORIDE 0.9% 1,000 ML IV SCH (09:45)
[2022-04-09] MEDS ORDERED: ACETAMINOPHEN 325 MG TAB PO PRN (09:45)
[2022-04-09] MEDS ORDERED: ONDANSETRON HCL 4 MG/2 ML VIAL IV PRN (09:45)
[2022-04-09] MEDS ORDERED: MORPHINE SULFATE INJ 2 MG/ml SYRG IV PRN (09:45)
[2022-04-09] MEDS ORDERED: PANTOPRAZOLE 40 MG/10 ML VIAL INJ IV SCH (10:00)
[2022-04-09] MEDS ORDERED: ASPirin-EC 81 mg tab PO SCH (10:00)
[2022-04-09] MEDS ORDERED: METOPROLOL SUCCINATE XL 50 MG TAB PO SCH (10:00)
[2022-04-09] MEDS ORDERED: RAMIPRIL 10 MG CAP PO SCH (10:00)
[2022-04-09] MEDS ORDERED: cloNIDine HCL 0.1 MG TAB PO SCH (10:30)
[2022-04-09] MEDS ORDERED: GABAPENTIN 300 MG CAP PO SCH (10:30)
[2022-04-09 11:03] LABS: Urine Bacteria NONE SEEN /hpf (None Seen); Urine Blood Negative /uL (Negative); Urine Mucus FEW (None Seen); Urine Specific Gravity 1.021 (1.001-1.035); Urine WBC <1 /hpf (0 - 3)
[2022-04-09] MEDS ORDERED: ATORVASTATIN 20 MG TAB PO SCH (22:00)
[2022-04-10] MEDS ORDERED: CLOPIDOGREL BISULFATE 75 MG TAB PO SCH (10:00)
[2022-04-10] MEDS ORDERED: ASPirin-EC 81 mg tab PO SCH (10:00)
== END 2022-04-09 13:30 | disposition left against medical advice (07) | DRG 379 ==
LOC: ER 06:13 → TELE 09:50
PROVIDERS: ADMIT Nurse Practitioner Family; ATTEND Nurse Practitioner Family
DX: K92.2 Gastrointestinal hemorrhage, unspecified (principal); I25.10 Atherosclerotic heart disease of native coronary artery without angina pectoris; I10 Essential (primary) hypertension; F17.210 Nicotine dependence, cigarettes, uncomplicated; I16.0 Hypertensive urgency; E78.5 Hyperlipidemia, unspecified; K21.9 Gastro-esophageal reflux disease without esophagitis; Z79.02 Long term (current) use of antithrombotics/antiplatelets; Z82.49 Family history of ischemic heart disease and other diseases of the circulatory system; Z98.61 Coronary angioplasty status
CPT/HCPCS: 36415; 74176; 80053; 81001; 84484; 85025; 85610; 85730; 87426; 96361; 96374; C9113; G0378

== ENCOUNTER → 2022-04-27 | Day surgery (SDC) | payer OTHER ==
[2022-04-25 12:23] LABS: Basophils # (auto) 0 10 ^3/uL (0-0.2); Basophils % (auto) 0.6 % (0.0-2.0); Eosinophils # (auto) 0 10 ^3/uL (0-0.8); Eosinophils % (auto) 0.6 % (0.0-7.0); Hematocrit 44.1 % (41.0-53.0); Hemoglobin 14.5 g/dL (13.5-17.5); Lymphocytes # (auto) 3.1 10 ^3/uL (0.4-5.4); Lymphocytes % (auto) 49.4 % (10.0-50.0); Mean Corpuscular Hemoglobin 28.9 pg (28.0-32.0); Mean Corpuscular Hgb Conc. 32.9 g/dL (32.0-36.0); Mean Corpuscular Volume 87.8 fL (80.0-100.0); Monocytes # (auto) 0.6 10 ^3/uL (0-1.3); Monocytes % (auto) 9.3 % (0.0-12.0); Neutrophils # (auto) 2.5 10 ^3/uL (1.6-8.6); Neutrophils % (auto) 40.1 % (37.0-80.0); Red Blood Cells 5.03 10^6/uL (4.5-5.90); Red Cell Distribution Width 16.2 % (11.8-14.3); White Blood Cell 6.2 10^3/uL (4.4-10.8)
[2022-04-25 12:29] LABS: INR 0.97 (0.9-1.15); Partial Thromboplastin Time 25.4 sec (24.6-33.4)
[2022-04-25 13:00] LABS: Potassium 4.1 mmol/L (3.5-5.1)
[2022-04-25 13:16] LABS: Albumin 4.1 g/dL (3.4-5.0); BUN/Creatinine Ratio 16.5; Bilirubin, Total 0.6 mg/dL (0.2-1.0); Calcium 9.1 mg/dL (8.5-10.1); Total Protein 7.9 g/dL (6.4-8.2)
[~2022-04-27] VITALS: Ht 175.3 cm; Wt 91.6 kg
[~2022-04-27] MED LIST changes: -AMLO-496 PO; -ASPI-325 PO; +CLOP75TA28 PO; -CLOP75TA70 PO; +DICY10CA PO; +DexAMETHasone SOD PHOS 10MG/1ML VIAL INJ ONE; +ELVI1TAB5 PO; -METO-6 PO; +MIDAZOLAM HCL 2MG/2ML 2ml VIAL (1mg/ml) ONE; +PROPOFOL 10 MG/ML 20 ML IV ONE; +SODIUM CHLORIDE LOCK 10 ML ONE; +fentaNYL CITRATE 100 MCG/2 ML VL ONE
[2022-04-27 18:10] VITALS: BP 189/94
== END | disposition home or self-care (01) ==
LOC: GI 13:38
PROVIDERS: ATTEND Internal Medicine Gastroenterology
DX: K62.5 Hemorrhage of anus and rectum (principal); K64.9 Unspecified hemorrhoids; K62.6 Ulcer of anus and rectum; Z21 Asymptomatic human immunodeficiency virus [HIV] infection status; Z95.1 Presence of aortocoronary bypass graft; F15.90 Other stimulant use, unspecified, uncomplicated; Z72.89 Other problems related to lifestyle; Z79.899 Other long term (current) drug therapy; Z98.890 Other specified postprocedural states; Z20.822 Contact with and (suspected) exposure to COVID-19
CPT/HCPCS: 36415; 45380; 80053; 85025; 85610; 85730; J1100; J2250; J2704; J3010; J7030; U0003

== ENCOUNTER 2022-07-06 10:41 | Emergency (ER) | payer OTHER ==
[~2022-07-06] VITALS: Ht 177.8 cm; Wt 92.2 kg
[~2022-07-06 10:41] MED LIST changes: -DexAMETHasone SOD PHOS 10MG/1ML VIAL INJ ONE; -MIDAZOLAM HCL 2MG/2ML 2ml VIAL (1mg/ml) ONE; -PROPOFOL 10 MG/ML 20 ML IV ONE; -SODIUM CHLORIDE LOCK 10 ML ONE; -fentaNYL CITRATE 100 MCG/2 ML VL ONE
[2022-07-06] MEDS ORDERED: LABETALOL HCL 5 MG/ML 4ML SYRINGE IV ONE (11:15)
[2022-07-06 11:21] LABS: Basophils # (auto) 0 10 ^3/uL (0-0.2); Basophils % (auto) 0.4 % (0.0-2.0); Eosinophils # (auto) 0.1 10 ^3/uL (0-0.8); Eosinophils % (auto) 0.9 % (0.0-7.0); Hemoglobin 13.8 g/dL (13.5-17.5); Lymphocytes # (auto) 2.8 10 ^3/uL (0.4-5.4); Lymphocytes % (auto) 43.9 % (10.0-50.0); Mean Corpuscular Hemoglobin 28.5 pg (28.0-32.0); Mean Corpuscular Hgb Conc. 32.7 g/dL (32.0-36.0); Mean Corpuscular Volume 87.1 fL (80.0-100.0); Monocytes # (auto) 0.6 10 ^3/uL (0-1.3); Monocytes % (auto) 9.5 % (0.0-12.0); Neutrophils # (auto) 2.9 10 ^3/uL (1.6-8.6); Neutrophils % (auto) 45.3 % (37.0-80.0); Nucleated Red Blood Cells % 0.1 %; Red Blood Cells 4.83 10^6/uL (4.5-5.90); Red Cell Distribution Width 14.4 % (11.8-14.3); White Blood Cell 6.5 10^3/uL (4.4-10.8)
[2022-07-06 11:26] LABS: Albumin 3.8 g/dL (3.4-5.0); Calcium 9.5 mg/dL (8.5-10.1); Potassium 4.2 mmol/L (3.5-5.1)
[2022-07-06 11:28] LABS: INR 0.97 (0.9-1.15); Partial Thromboplastin Time 25.8 sec (24.6-33.4)
[2022-07-06 11:30] LABS: BUN/Creatinine Ratio 21.3 (10.0-20.0); Bilirubin, Total 0.4 mg/dL (0.2-1.0); Total Protein 7.1 g/dL (6.4-8.2)
[2022-07-06 15:00] VITALS: BP 150/96
== END 2022-07-06 15:10 | disposition home or self-care (01) ==
LOC: ER 10:41
DX: I16.0 Hypertensive urgency (principal); R07.89 Other chest pain; I25.10 Atherosclerotic heart disease of native coronary artery without angina pectoris; I10 Essential (primary) hypertension; K21.9 Gastro-esophageal reflux disease without esophagitis; E78.5 Hyperlipidemia, unspecified; F17.210 Nicotine dependence, cigarettes, uncomplicated; F12.90 Cannabis use, unspecified, uncomplicated; Z90.49 Acquired absence of other specified parts of digestive tract; Z98.890 Other specified postprocedural states
CPT/HCPCS: 36415; 71045; 80053; 84484; 85025; 85610; 85730; 93005; 96374; 99285; J3490

== ENCOUNTER → 2022-08-05 | Outpatient (CLI) | payer OTHER ==
[2022-08-05 10:55] LABS: Basophils # (auto) 0 10 ^3/uL (0-0.2); Basophils % (auto) 0.4 % (0.0-2.0); Eosinophils # (auto) 0.1 10 ^3/uL (0-0.8); Eosinophils % (auto) 1.4 % (0.0-7.0); Hematocrit 38.4 % (41.0-53.0); Hemoglobin 12.9 g/dL (13.5-17.5); Lymphocytes # (auto) 2.5 10 ^3/uL (0.4-5.4); Lymphocytes % (auto) 47.7 % (10.0-50.0); Mean Corpuscular Hemoglobin 29.5 pg (28.0-32.0); Mean Corpuscular Hgb Conc. 33.5 g/dL (32.0-36.0); Mean Corpuscular Volume 87.9 fL (80.0-100.0); Monocytes # (auto) 0.5 10 ^3/uL (0-1.3); Monocytes % (auto) 9.8 % (0.0-12.0); Neutrophils # (auto) 2.1 10 ^3/uL (1.6-8.6); Neutrophils % (auto) 40.7 % (37.0-80.0); Nucleated Red Blood Cells % 0.1 %; Red Blood Cells 4.37 10^6/uL (4.5-5.90); Red Cell Distribution Width 14.2 % (11.8-14.3); White Blood Cell 5.2 10^3/uL (4.4-10.8)
[2022-08-05 11:00] LABS: Albumin 3.8 g/dL (3.4-5.0); Calcium 9.1 mg/dL (8.5-10.1); Potassium 4.1 mmol/L (3.5-5.1)
[2022-08-05 11:04] LABS: BUN/Creatinine Ratio 13.5 (10.0-20.0); Bilirubin, Total 0.2 mg/dL (0.2-1.0); Total Protein 7.2 g/dL (6.4-8.2)
== END | disposition home or self-care (01) ==
LOC: LAB 10:13
PROVIDERS: ATTEND Internal Medicine
DX: C21.1 Malignant neoplasm of anal canal (principal)
CPT/HCPCS: 36415; 80053; 82378; 83615; 85025

== ENCOUNTER → 2022-09-19 | Outpatient (CLI) | payer OTHER ==
[2022-09-19 15:35] LABS: Basophils # (auto) 0 10 ^3/uL (0-0.2); Basophils % (auto) 0.9 % (0.0-2.0); Eosinophils # (auto) 0.1 10 ^3/uL (0-0.8); Eosinophils % (auto) 3.3 % (0.0-7.0); Hematocrit 35.9 % (41.0-53.0); Hemoglobin 11.8 g/dL (13.5-17.5); Lymphocytes # (auto) 0.7 10 ^3/uL (0.4-5.4); Lymphocytes % (auto) 33.9 % (10.0-50.0); Mean Corpuscular Hemoglobin 29.2 pg (28.0-32.0); Mean Corpuscular Hgb Conc. 32.8 g/dL (32.0-36.0); Mean Corpuscular Volume 88.9 fL (80.0-100.0); Monocytes # (auto) 0.4 10 ^3/uL (0-1.3); Monocytes % (auto) 17.4 % (0.0-12.0); Neutrophils # (auto) 0.9 10 ^3/uL (1.6-8.6); Neutrophils % (auto) 44.5 % (37.0-80.0); Nucleated Red Blood Cells % 0.1 %; Red Blood Cells 4.04 10^6/uL (4.5-5.90); White Blood Cell 2.1 10^3/uL (4.4-10.8)
[2022-09-19 16:03] LABS: Albumin 3.4 g/dL (3.4-5.0); Calcium 8.7 mg/dL (8.5-10.1); Potassium 3.6 mmol/L (3.5-5.1)
[2022-09-19 16:08] LABS: BUN/Creatinine Ratio 13.5 (10.0-20.0); Bilirubin, Total 0.2 mg/dL (0.2-1.0); Total Protein 7.2 g/dL (6.4-8.2)
== END | disposition home or self-care (01) ==
LOC: LAB 15:07
PROVIDERS: ATTEND Internal Medicine
DX: C21.1 Malignant neoplasm of anal canal (principal)
CPT/HCPCS: 36415; 80053; 82378; 83615; 85025

== ENCOUNTER → 2022-11-25 | Outpatient (CLI) | payer OTHER ==
[~2022-11-25] VITALS: Ht 177.8 cm; Wt 90.7 kg
[~2022-11-25] MED LIST changes: +ADENOSINE 76 MG in GIVE UN-DILUTED 0 ML IV ONE
== END | disposition home or self-care (01) ==
LOC: XYW 09:08
PROVIDERS: ATTEND Internal Medicine
DX: Z01.810 Encounter for preprocedural cardiovascular examination (principal); I25.10 Atherosclerotic heart disease of native coronary artery without angina pectoris; B20 Human immunodeficiency virus [HIV] disease; I25.2 Old myocardial infarction; I77.819 Aortic ectasia, unspecified site; I73.9 Peripheral vascular disease, unspecified; I10 Essential (primary) hypertension; E78.5 Hyperlipidemia, unspecified
CPT/HCPCS: 78452; 93017; A9500; J0153